=== PATIENT | female | born 1935 | race Caucasian/White ===

== ENCOUNTER 2021-06-13 07:57 | Inpatient (IN) ==
[2021-06-13 07:05] LABS: Hematocrit 40.2 % (35.3-44.9); Hemoglobin 13.7 g/dL (11.5-15.4); Immature Granulocytes % 0.4 % (0-4); Lymphocytes # 0.8 K/mcL (0.6-4.6); Lymphocytes % 28.6 %; Mean Corpuscular HGB Conc 34.1 g/dL (31.6-35.5); Mean Corpuscular Hemoglobin 30.9 pg (28.0-33.3); Mean Corpuscular Volume 90.7 fL (83.0-100.0); Mean Platelet Volume 10.4 fL (9.4-12.4); Monocytes # 0.1 K/mcL (0.0-1.3); Monocytes % 4.9 %; Neutrophils # 1.9 K/mcL (1.6-8.9); Platelet Count 155 K/mcL (140-400); Red Blood Count 4.43 M/mcL (3.82-4.97); Red Cell Distribution Width 13.1 % (11.5-14.5); Segmented Neutrophils % 66.1 %; White Blood Count 2.8 K/mcL (4.3-11.1)
[2021-06-13 07:18] LABS: Activated Partial Thrombo Time 40.6 Seconds (26.0-36.0); INR 2.5; Prothrombin Time 28.5 Seconds (9.4-12.1)
[2021-06-13 07:25] LABS: BUN/Creatinine Ratio 19 (6-26); Blood Urea Nitrogen 13 mg/dL (8-23); Calcium 8.9 mg/dL (8.6-10.3); Carbon Dioxide 25 mEq/L (23-29); Chloride 100 mEq/L (98-107); Glucose 144 mg/dL (70-105); Osmolality,Calculated 281 (280-300); Sodium 134 mEq/L (136-145); eGFR For African Americans > 60 (> 60); eGFR For Non-African Americans > 60 (> 60)
[2021-06-13 07:27] LABS: Lactate Dehydrogenase 207 Units/L (140-271)
[~2021-06-13 07:57] MED LIST: *HR* Heparin 5,000 UNIT/ML VIAL SQ SCH; Naloxone 0.4 MG/ML INJ IVP PRN; Ondansetron 4 MG/2 ML VIAL IVP PRN
[2021-06-13 08:44] LABS: C-Reactive Protein 64 mg/L (Less than 10)
[2021-06-13] MEDS: cefTRIAXone 1,000 MG in 0.9 % Sodium Chloride Mini Bag 100 ML IVPB SCH (09:38)
[2021-06-13] MEDS: lisinopriL 10 MG TABLET PO SCH (09:38)
[2021-06-13] MEDS: Metoprolol XL (24 HR) Succ 25 MG TAB.ER.24H PO SCH (09:38)
[2021-06-13 11:37] LABS: Ferritin 773 ng/mL (10-120)
[2021-06-13] MEDS ORDERED: *HR* Rivaroxaban 15 MG TABLET PO SCH (17:00)
[2021-06-13] MEDS: *HR* Rivaroxaban 10 MG TABLET PO SCH (17:04)
[2021-06-14] MEDS ORDERED: Morphine Sulfate 2 MG/ML SYRINGE IVP ONE (00:15)
[2021-06-14] MEDS: cefTRIAXone 1,000 MG in 0.9 % Sodium Chloride Mini Bag 100 ML IVPB SCH (09:22)
[2021-06-14] MEDS: Metoprolol XL (24 HR) Succ 25 MG TAB.ER.24H PO SCH (09:22)
[2021-06-14] MEDS: lisinopriL 10 MG TABLET PO SCH (09:24)
[2021-06-14] MEDS: Ipratropium 1 PUFF INHALER IH SCH ×4 (11:09→22:57)
[2021-06-14 11:58] LABS: Hematocrit 39.6 % (35.3-44.9); Hemoglobin 13.7 g/dL (11.5-15.4); Immature Granulocytes % 0.5 % (0-4); Lymphocytes # 0.6 K/mcL (0.6-4.6); Lymphocytes % 7.2 %; Mean Corpuscular HGB Conc 34.6 g/dL (31.6-35.5); Mean Corpuscular Hemoglobin 30.7 pg (28.0-33.3); Mean Corpuscular Volume 88.8 fL (83.0-100.0); Mean Platelet Volume 10.7 fL (9.4-12.4); Monocytes # 0.7 K/mcL (0.0-1.3); Monocytes % 8.5 %; Platelet Count 203 K/mcL (140-400); Red Blood Count 4.46 M/mcL (3.82-4.97); Red Cell Distribution Width 13.1 % (11.5-14.5); Segmented Neutrophils % 83.8 %
[2021-06-14 12:01] LABS: Neutrophils # 6.9 K/mcL (1.6-8.9); White Blood Count 8.2 K/mcL (4.3-11.1)
[2021-06-14 12:35] LABS: Alanine Aminotransferase 15 Units/L (7-52); Albumin 3.3 g/dL (3.5-5.7); Albumin/Globulin Ratio 1.6 (1.1-2.2); Alkaline Phosphatase 69 Units/L (34-104); Aspartate Amino Transferase 27 Units/L (13-39); BUN/Creatinine Ratio 27 (6-26); Bilirubin,Total 0.4 mg/dL (0.3-1.0); Blood Urea Nitrogen 17 mg/dL (8-23); Calcium 8.9 mg/dL (8.6-10.3); Carbon Dioxide 23 mEq/L (23-29); Chloride 99 mEq/L (98-107); Globulin 2.1 g/dL (2.4-3.5); Glucose 181 mg/dL (70-105); Osmolality,Calculated 276 (280-300); Potassium 4.2 mEq/L (3.5-5.1); Sodium 130 mEq/L (136-145); Total Protein 5.4 g/dL (6.4-8.9); eGFR For African Americans > 60 (> 60); eGFR For Non-African Americans > 60 (> 60)
[2021-06-14] MEDS: *HR* Rivaroxaban 10 MG TABLET PO SCH (17:16)
[2021-06-15] MEDS: Ipratropium 1 PUFF INHALER IH SCH ×5 (04:09→19:57)
[2021-06-15 05:57] LABS: Basophils % 0.1 %; Hemoglobin 13.3 g/dL (11.5-15.4); Immature Granulocytes % 0.7 % (0-4); Lymphocytes # 0.7 K/mcL (0.6-4.6); Lymphocytes % 7.1 %; Mean Corpuscular HGB Conc 34.1 g/dL (31.6-35.5); Mean Corpuscular Hemoglobin 30.5 pg (28.0-33.3); Mean Corpuscular Volume 89.4 fL (83.0-100.0); Mean Platelet Volume 10.6 fL (9.4-12.4); Monocytes # 0.7 K/mcL (0.0-1.3); Monocytes % 7.9 %; Neutrophils # 7.7 K/mcL (1.6-8.9); Platelet Count 220 K/mcL (140-400); Red Blood Count 4.36 M/mcL (3.82-4.97); Red Cell Distribution Width 13.2 % (11.5-14.5); Segmented Neutrophils % 84.2 %; White Blood Count 9.2 K/mcL (4.3-11.1)
[2021-06-15 06:18] LABS: Alanine Aminotransferase 21 Units/L (7-52); Albumin 3.2 g/dL (3.5-5.7); Albumin/Globulin Ratio 1.7 (1.1-2.2); Alkaline Phosphatase 68 Units/L (34-104); Aspartate Amino Transferase 33 Units/L (13-39); BUN/Creatinine Ratio 29 (6-26); Bilirubin,Total 0.4 mg/dL (0.3-1.0); Blood Urea Nitrogen 20 mg/dL (8-23); Calcium 8.7 mg/dL (8.6-10.3); Carbon Dioxide 24 mEq/L (23-29); Chloride 102 mEq/L (98-107); Globulin 1.9 g/dL (2.4-3.5); Glucose 129 mg/dL (70-105); Lactate Dehydrogenase 235 Units/L (140-271); Osmolality,Calculated 280 (280-300); Potassium 4.5 mEq/L (3.5-5.1); Sodium 133 mEq/L (136-145); Total Protein 5.1 g/dL (6.4-8.9); eGFR For African Americans > 60 (> 60); eGFR For Non-African Americans > 60 (> 60)
[2021-06-15 06:35] LABS: Ferritin 701 ng/mL (10-120)
[2021-06-15] MEDS: Multivit/Ca/Min/Fe/FA 1 TAB TABLET PO SCH (08:29)
[2021-06-15] MEDS: Metoprolol XL (24 HR) Succ 25 MG TAB.ER.24H PO SCH (08:29)
[2021-06-15] MEDS: lisinopriL 10 MG TABLET PO SCH (08:29)
[2021-06-15] MEDS: Cholecalciferol (D-3) 1,000 UNIT (25MCG) TABLET PO SCH (08:29)
[2021-06-15] MEDS: cefTRIAXone 1,000 MG in 0.9 % Sodium Chloride Mini Bag 100 ML IVPB SCH (08:30)
[2021-06-15] MEDS: *HR* Rivaroxaban 10 MG TABLET PO SCH (17:38)
[2021-06-16] MEDS: Ipratropium 1 PUFF INHALER IH SCH ×6 (00:44→20:22)
[2021-06-16 07:53] LABS: Basophils % 0.2 %; Hemoglobin 14.4 g/dL (11.5-15.4); Immature Granulocytes % 1.4 % (0-4); Lymphocytes # 0.8 K/mcL (0.6-4.6); Lymphocytes % 8.2 %; Mean Corpuscular HGB Conc 32.7 g/dL (31.6-35.5); Mean Corpuscular Hemoglobin 29.8 pg (28.0-33.3); Mean Corpuscular Volume 90.9 fL (83.0-100.0); Mean Platelet Volume 10.6 fL (9.4-12.4); Monocytes # 1.1 K/mcL (0.0-1.3); Monocytes % 11.1 %; Neutrophils # 7.8 K/mcL (1.6-8.9); Platelet Count 230 K/mcL (140-400); Red Blood Count 4.84 M/mcL (3.82-4.97); Red Cell Distribution Width 13.2 % (11.5-14.5); Segmented Neutrophils % 79.1 %; White Blood Count 9.8 K/mcL (4.3-11.1)
[2021-06-16 08:14] LABS: Alanine Aminotransferase 44 Units/L (7-52); Albumin 3.3 g/dL (3.5-5.7); Albumin/Globulin Ratio 1.5 (1.1-2.2); Alkaline Phosphatase 79 Units/L (34-104); Aspartate Amino Transferase 55 Units/L (13-39); BUN/Creatinine Ratio 32 (6-26); Bilirubin,Total 0.5 mg/dL (0.3-1.0); Blood Urea Nitrogen 22 mg/dL (8-23); Carbon Dioxide 29 mEq/L (23-29); Chloride 99 mEq/L (98-107); Globulin 2.2 g/dL (2.4-3.5); Glucose 106 mg/dL (70-105); Osmolality,Calculated 282 (280-300); Potassium 4.8 mEq/L (3.5-5.1); Sodium 134 mEq/L (136-145); Total Protein 5.5 g/dL (6.4-8.9); eGFR For African Americans > 60 (> 60); eGFR For Non-African Americans > 60 (> 60)
[2021-06-16] MEDS: cefTRIAXone 1,000 MG in 0.9 % Sodium Chloride Mini Bag 100 ML IVPB SCH (09:16)
[2021-06-16] MEDS: Metoprolol XL (24 HR) Succ 25 MG TAB.ER.24H PO SCH (09:17)
[2021-06-16] MEDS: lisinopriL 10 MG TABLET PO SCH (09:17)
[2021-06-16] MEDS: Cholecalciferol (D-3) 1,000 UNIT (25MCG) TABLET PO SCH (09:17)
[2021-06-16] MEDS: Multivit/Ca/Min/Fe/FA 1 TAB TABLET PO SCH (09:17)
[2021-06-16] MEDS: Acetaminophen 325 MG TABLET PO PRN (09:58)
[2021-06-16] MEDS ORDERED: Remdesivir 200 MG in 0.9 % Sodium Chloride 100 ML IVPB ONE (10:17)
[2021-06-16] MEDS: *HR* Rivaroxaban 10 MG TABLET PO SCH (16:56)
[2021-06-17] MEDS: Ipratropium 1 PUFF INHALER IH SCH ×6 (00:31→20:31)
[2021-06-17 05:49] LABS: Basophils % 0.3 %; Hematocrit 40.4 % (35.3-44.9); Hemoglobin 13.6 g/dL (11.5-15.4); Lymphocytes # 0.7 K/mcL (0.6-4.6); Lymphocytes % 8.3 %; Mean Corpuscular HGB Conc 33.7 g/dL (31.6-35.5); Mean Corpuscular Hemoglobin 30.1 pg (28.0-33.3); Mean Corpuscular Volume 89.4 fL (83.0-100.0); Mean Platelet Volume 10.5 fL (9.4-12.4); Monocytes # 0.9 K/mcL (0.0-1.3); Monocytes % 10.2 %; Platelet Count 210 K/mcL (140-400); Red Blood Count 4.52 M/mcL (3.82-4.97); Red Cell Distribution Width 13.2 % (11.5-14.5); Segmented Neutrophils % 79.2 %; White Blood Count 8.9 K/mcL (4.3-11.1)
[2021-06-17 06:16] LABS: Alanine Aminotransferase 40 Units/L (7-52); Albumin 3.1 g/dL (3.5-5.7); Albumin/Globulin Ratio 1.6 (1.1-2.2); Alkaline Phosphatase 71 Units/L (34-104); Aspartate Amino Transferase 41 Units/L (13-39); BUN/Creatinine Ratio 39 (6-26); Bilirubin,Total 0.5 mg/dL (0.3-1.0); Blood Urea Nitrogen 22 mg/dL (8-23); Calcium 8.5 mg/dL (8.6-10.3); Carbon Dioxide 27 mEq/L (23-29); Chloride 98 mEq/L (98-107); Globulin 1.9 g/dL (2.4-3.5); Glucose 123 mg/dL (70-105); Lactate Dehydrogenase 282 Units/L (140-271); Osmolality,Calculated 279 (280-300); Potassium 4.6 mEq/L (3.5-5.1); Sodium 132 mEq/L (136-145); eGFR For African Americans > 60 (> 60); eGFR For Non-African Americans > 60 (> 60)
[2021-06-17 06:21] LABS: Ferritin 930 ng/mL (10-120)
[2021-06-17 08:31] LABS: C-Reactive Protein 84 mg/L (Less than 10)
[2021-06-17] MEDS: cefTRIAXone 1,000 MG in 0.9 % Sodium Chloride Mini Bag 100 ML IVPB SCH (09:40)
[2021-06-17] MEDS: Cholecalciferol (D-3) 1,000 UNIT (25MCG) TABLET PO SCH (09:41)
[2021-06-17] MEDS: Multivit/Ca/Min/Fe/FA 1 TAB TABLET PO SCH (09:41)
[2021-06-17] MEDS: Metoprolol XL (24 HR) Succ 25 MG TAB.ER.24H PO SCH (09:42)
[2021-06-17] MEDS: lisinopriL 10 MG TABLET PO SCH (09:43)
[2021-06-17] MEDS: Remdesivir 100 MG in 0.9 % Sodium Chloride 100 ML IVPB SCH (11:30)
[2021-06-17] MEDS: *HR* Rivaroxaban 10 MG TABLET PO SCH (19:01)
[2021-06-18] MEDS: Ipratropium 1 PUFF INHALER IH SCH ×7 (00:25→23:15)
[2021-06-18 06:18] LABS: Basophils % 0.5 %; Eosinophils % 0.1 %; Hematocrit 41.8 % (35.3-44.9); Hemoglobin 14.3 g/dL (11.5-15.4); Immature Granulocytes % 2.6 % (0-4); Lymphocytes # 0.9 K/mcL (0.6-4.6); Lymphocytes % 9.9 %; Mean Corpuscular HGB Conc 34.2 g/dL (31.6-35.5); Mean Corpuscular Hemoglobin 30.8 pg (28.0-33.3); Mean Corpuscular Volume 90.1 fL (83.0-100.0); Mean Platelet Volume 10.4 fL (9.4-12.4); Monocytes % 10.7 %; Neutrophils # 6.8 K/mcL (1.6-8.9); Platelet Count 247 K/mcL (140-400); Red Blood Count 4.64 M/mcL (3.82-4.97); Red Cell Distribution Width 13.2 % (11.5-14.5); Segmented Neutrophils % 76.2 %; White Blood Count 8.9 K/mcL (4.3-11.1)
[2021-06-18] MEDS: lisinopriL 10 MG TABLET PO SCH (09:07)
[2021-06-18] MEDS: Cholecalciferol (D-3) 1,000 UNIT (25MCG) TABLET PO SCH (09:07)
[2021-06-18] MEDS: Multivit/Ca/Min/Fe/FA 1 TAB TABLET PO SCH (09:07)
[2021-06-18] MEDS: Metoprolol XL (24 HR) Succ 25 MG TAB.ER.24H PO SCH (09:08)
[2021-06-18 11:38] LABS: Alanine Aminotransferase 46 Units/L (7-52); Albumin/Globulin Ratio 1.5 (1.1-2.2); Alkaline Phosphatase 71 Units/L (34-104); Aspartate Amino Transferase 42 Units/L (13-39); BUN/Creatinine Ratio 33 (6-26); Bilirubin,Total 0.4 mg/dL (0.3-1.0); Blood Urea Nitrogen 20 mg/dL (8-23); C-Reactive Protein 63 mg/L (Less than 10); Calcium 8.7 mg/dL (8.6-10.3); Carbon Dioxide 29 mEq/L (23-29); Chloride 98 mEq/L (98-107); Ferritin 1186 ng/mL (10-120); Glucose 124 mg/dL (70-105); Lactate Dehydrogenase 464 Units/L (140-271); Osmolality,Calculated 278 (280-300); Potassium 4.8 mEq/L (3.5-5.1); Sodium 132 mEq/L (136-145); eGFR For African Americans > 60 (> 60); eGFR For Non-African Americans > 60 (> 60)
[2021-06-18] MEDS: Remdesivir 100 MG in 0.9 % Sodium Chloride 100 ML IVPB SCH (11:51)
[2021-06-18] MEDS: *HR* Rivaroxaban 10 MG TABLET PO SCH (16:39)
[2021-06-19] MEDS: Ipratropium 1 PUFF INHALER IH SCH ×6 (03:56→23:24)
[2021-06-19 06:55] LABS: Hematocrit 40.9 % (35.3-44.9); Mean Corpuscular HGB Conc 34.2 g/dL (31.6-35.5); Mean Corpuscular Hemoglobin 30.4 pg (28.0-33.3); Mean Corpuscular Volume 88.7 fL (83.0-100.0); Mean Platelet Volume 10.4 fL (9.4-12.4); Platelet Count 267 K/mcL (140-400); Red Blood Count 4.61 M/mcL (3.82-4.97); Red Cell Distribution Width 13.1 % (11.5-14.5); White Blood Count 8.8 K/mcL (4.3-11.1)
[2021-06-19 07:03] LABS: BUN/Creatinine Ratio 36 (6-26); Blood Urea Nitrogen 20 mg/dL (8-23); Calcium 8.8 mg/dL (8.6-10.3); Carbon Dioxide 32 mEq/L (23-29); Chloride 97 mEq/L (98-107); Glucose 122 mg/dL (70-105); Magnesium 1.9 mg/dL (1.6-2.6); Osmolality,Calculated 280 (280-300); Phosphorous 2.9 mg/dL (2.7-4.5); Potassium 4.9 mEq/L (3.5-5.1); Sodium 133 mEq/L (136-145); eGFR For African Americans > 60 (> 60); eGFR For Non-African Americans > 60 (> 60)
[2021-06-19 07:18] LABS: Ferritin 1016 ng/mL (10-120)
[2021-06-19] MEDS: Cholecalciferol (D-3) 1,000 UNIT (25MCG) TABLET PO SCH (10:12)
[2021-06-19] MEDS: lisinopriL 10 MG TABLET PO SCH (10:12)
[2021-06-19] MEDS: Metoprolol XL (24 HR) Succ 25 MG TAB.ER.24H PO SCH (10:12)
[2021-06-19] MEDS: Multivit/Ca/Min/Fe/FA 1 TAB TABLET PO SCH (10:12)
[2021-06-19] MEDS: Remdesivir 100 MG in 0.9 % Sodium Chloride 100 ML IVPB SCH (12:58)
[2021-06-19] MEDS: Melatonin 3 MG TABLET PO PRN (15:00)
[2021-06-19 16:53] LABS: Albumin 2.7 g/dL (3.5-5.7); Albumin/Globulin Ratio 1.4 (1.1-2.2); Bilirubin,Direct 0.1 mg/dL (0.0-0.2); Bilirubin,Indirect 0.4 mg/dL (0.0-1.0); Bilirubin,Total 0.5 mg/dL (0.3-1.0); Globulin 1.9 g/dL (2.4-3.5); Total Protein 4.6 g/dL (6.4-8.9)
[2021-06-19] MEDS: *HR* Rivaroxaban 10 MG TABLET PO SCH (18:32)
[2021-06-20] MEDS: Ipratropium 1 PUFF INHALER IH SCH ×6 (03:47→23:50)
[2021-06-20 06:06] LABS: Hematocrit 41.7 % (35.3-44.9); Mean Corpuscular HGB Conc 33.6 g/dL (31.6-35.5); Mean Corpuscular Hemoglobin 30.2 pg (28.0-33.3); Mean Corpuscular Volume 89.9 fL (83.0-100.0); Mean Platelet Volume 10.2 fL (9.4-12.4); Platelet Count 281 K/mcL (140-400); Red Blood Count 4.64 M/mcL (3.82-4.97); White Blood Count 8.8 K/mcL (4.3-11.1)
[2021-06-20 06:34] LABS: Alanine Aminotransferase 27 Units/L (7-52); Albumin 2.8 g/dL (3.5-5.7); Albumin/Globulin Ratio 1.5 (1.1-2.2); Alkaline Phosphatase 74 Units/L (34-104); Aspartate Amino Transferase 22 Units/L (13-39); BUN/Creatinine Ratio 44 (6-26); Bilirubin,Direct 0.1 mg/dL (0.0-0.2); Bilirubin,Indirect 0.4 mg/dL (0.0-1.0); Bilirubin,Total 0.5 mg/dL (0.3-1.0); Blood Urea Nitrogen 24 mg/dL (8-23); Calcium 8.8 mg/dL (8.6-10.3); Carbon Dioxide 32 mEq/L (23-29); Chloride 96 mEq/L (98-107); Globulin 1.9 g/dL (2.4-3.5); Glucose 182 mg/dL (70-105); Osmolality,Calculated 283 (280-300); Potassium 4.9 mEq/L (3.5-5.1); Sodium 132 mEq/L (136-145); Total Protein 4.7 g/dL (6.4-8.9); eGFR For African Americans > 60 (> 60); eGFR For Non-African Americans > 60 (> 60)
[2021-06-20] MEDS: Multivit/Ca/Min/Fe/FA 1 TAB TABLET PO SCH (09:54)
[2021-06-20] MEDS: Metoprolol XL (24 HR) Succ 25 MG TAB.ER.24H PO SCH (09:54)
[2021-06-20] MEDS: lisinopriL 10 MG TABLET PO SCH (09:54)
[2021-06-20] MEDS: Cholecalciferol (D-3) 1,000 UNIT (25MCG) TABLET PO SCH (09:54)
[2021-06-20] MEDS: Remdesivir 100 MG in 0.9 % Sodium Chloride 100 ML IVPB SCH (11:14)
[2021-06-20] MEDS: *HR* Rivaroxaban 10 MG TABLET PO SCH (16:40)
[2021-06-20] MEDS: traZODone 50 MG TABLET PO PRN (20:23)
[2021-06-20] MEDS: Melatonin 3 MG TABLET PO PRN (20:24)
[2021-06-21] MEDS: Ipratropium 1 PUFF INHALER IH SCH ×6 (03:57→23:44)
[2021-06-21] MEDS: lisinopriL 10 MG TABLET PO SCH (09:16)
[2021-06-21] MEDS: Multivit/Ca/Min/Fe/FA 1 TAB TABLET PO SCH (09:25)
[2021-06-21] MEDS: Metoprolol XL (24 HR) Succ 25 MG TAB.ER.24H PO SCH (09:25)
[2021-06-21] MEDS: Cholecalciferol (D-3) 1,000 UNIT (25MCG) TABLET PO SCH (09:25)
[2021-06-21] MEDS: *HR* Rivaroxaban 10 MG TABLET PO SCH (16:43)
[2021-06-21] MEDS: traZODone 50 MG TABLET PO PRN (21:32)
[2021-06-21] MEDS: Melatonin 3 MG TABLET PO PRN (21:32)
[2021-06-22] MEDS: Ipratropium 1 PUFF INHALER IH SCH ×5 (04:48→20:14)
[2021-06-22 06:55] LABS: Hematocrit 41.8 % (35.3-44.9); Hemoglobin 14.1 g/dL (11.5-15.4); Mean Corpuscular HGB Conc 33.7 g/dL (31.6-35.5); Mean Corpuscular Hemoglobin 29.7 pg (28.0-33.3); Mean Platelet Volume 10.2 fL (9.4-12.4); Platelet Count 286 K/mcL (140-400); Red Blood Count 4.75 M/mcL (3.82-4.97); White Blood Count 11.1 K/mcL (4.3-11.1)
[2021-06-22 07:17] LABS: BUN/Creatinine Ratio 63 (6-26); Blood Urea Nitrogen 33 mg/dL (8-23); Carbon Dioxide 32 mEq/L (23-29); Chloride 97 mEq/L (98-107); Glucose 145 mg/dL (70-105); Osmolality,Calculated 284 (280-300); Potassium 4.8 mEq/L (3.5-5.1); Sodium 132 mEq/L (136-145); eGFR For African Americans > 60 (> 60); eGFR For Non-African Americans > 60 (> 60)
[2021-06-22 08:48] LABS: Calcium 8.6 mg/dL (8.6-10.3)
[2021-06-22] MEDS: lisinopriL 10 MG TABLET PO SCH (09:00)
[2021-06-22] MEDS: Metoprolol XL (24 HR) Succ 25 MG TAB.ER.24H PO SCH (09:19)
[2021-06-22] MEDS: Cholecalciferol (D-3) 1,000 UNIT (25MCG) TABLET PO SCH (09:54)
[2021-06-22] MEDS: Multivit/Ca/Min/Fe/FA 1 TAB TABLET PO SCH (09:54)
[2021-06-22] MEDS: *HR* Rivaroxaban 10 MG TABLET PO SCH (18:20)
[2021-06-23] MEDS: Ipratropium 1 PUFF INHALER IH SCH ×7 (00:29→20:42)
[2021-06-23] MEDS: Multivit/Ca/Min/Fe/FA 1 TAB TABLET PO SCH (09:43)
[2021-06-23] MEDS: Cholecalciferol (D-3) 1,000 UNIT (25MCG) TABLET PO SCH (09:43)
[2021-06-23] MEDS: Metoprolol XL (24 HR) Succ 25 MG TAB.ER.24H PO SCH (09:43)
[2021-06-23] MEDS: lisinopriL 10 MG TABLET PO SCH (09:43)
[2021-06-23] MEDS: dexAMETHasone 4 MG TABLET PO SCH (09:43)
[2021-06-23] MEDS: *HR* Rivaroxaban 10 MG TABLET PO SCH (17:35)
[2021-06-24] MEDS: Ipratropium 1 PUFF INHALER IH SCH ×6 (00:09→20:10)
[2021-06-24 07:01] LABS: Hematocrit 40.5 % (35.3-44.9); Mean Corpuscular HGB Conc 34.6 g/dL (31.6-35.5); Mean Corpuscular Hemoglobin 30.7 pg (28.0-33.3); Mean Corpuscular Volume 88.8 fL (83.0-100.0); Mean Platelet Volume 10.6 fL (9.4-12.4); Platelet Count 248 K/mcL (140-400); Red Blood Count 4.56 M/mcL (3.82-4.97); Red Cell Distribution Width 13.4 % (11.5-14.5); White Blood Count 9.7 K/mcL (4.3-11.1)
[2021-06-24 07:42] LABS: BUN/Creatinine Ratio 56 (6-26); Blood Urea Nitrogen 32 mg/dL (8-23); Calcium 8.3 mg/dL (8.6-10.3); Carbon Dioxide 31 mEq/L (23-29); Chloride 98 mEq/L (98-107); Glucose 116 mg/dL (70-105); Osmolality,Calculated 282 (280-300); Potassium 4.7 mEq/L (3.5-5.1); Sodium 132 mEq/L (136-145); eGFR For African Americans > 60 (> 60); eGFR For Non-African Americans > 60 (> 60)
[2021-06-24] MEDS: Multivit/Ca/Min/Fe/FA 1 TAB TABLET PO SCH (08:33)
[2021-06-24] MEDS: Cholecalciferol (D-3) 1,000 UNIT (25MCG) TABLET PO SCH (08:33)
[2021-06-24] MEDS: dexAMETHasone 4 MG TABLET PO SCH (08:50)
[2021-06-24] MEDS: lisinopriL 10 MG TABLET PO SCH (08:51)
[2021-06-24] MEDS: Metoprolol XL (24 HR) Succ 25 MG TAB.ER.24H PO SCH (08:51)
[2021-06-24] MEDS: *HR* Rivaroxaban 10 MG TABLET PO SCH (23:27)
[2021-06-25] MEDS: Ipratropium 1 PUFF INHALER IH SCH ×7 (00:46→23:33)
[2021-06-25] MEDS: Cholecalciferol (D-3) 1,000 UNIT (25MCG) TABLET PO SCH (09:34)
[2021-06-25] MEDS: lisinopriL 10 MG TABLET PO SCH (09:34)
[2021-06-25] MEDS: Multivit/Ca/Min/Fe/FA 1 TAB TABLET PO SCH (09:34)
[2021-06-25] MEDS: Metoprolol XL (24 HR) Succ 25 MG TAB.ER.24H PO SCH (09:34)
[2021-06-25] MEDS: *HR* Rivaroxaban 10 MG TABLET PO SCH (17:35)
[2021-06-26] MEDS: Multivit/Ca/Min/Fe/FA 1 TAB TABLET PO SCH (09:39)
[2021-06-26] MEDS: Metoprolol XL (24 HR) Succ 25 MG TAB.ER.24H PO SCH (09:39)
[2021-06-26] MEDS: lisinopriL 10 MG TABLET PO SCH (09:39)
[2021-06-26] MEDS: Cholecalciferol (D-3) 1,000 UNIT (25MCG) TABLET PO SCH (09:40)
[2021-06-26] MEDS: Saline Nasal Spray 44 ML BOTTLE NS SCH ×2 (12:59→21:53)
[2021-06-26] MEDS: *HR* Rivaroxaban 10 MG TABLET PO SCH (18:23)
[2021-06-27] MEDS: Cholecalciferol (D-3) 1,000 UNIT (25MCG) TABLET PO SCH (08:58)
[2021-06-27] MEDS: lisinopriL 10 MG TABLET PO SCH (08:58)
[2021-06-27] MEDS: Metoprolol XL (24 HR) Succ 25 MG TAB.ER.24H PO SCH (08:58)
[2021-06-27] MEDS: Multivit/Ca/Min/Fe/FA 1 TAB TABLET PO SCH (08:58)
[2021-06-27] MEDS: Saline Nasal Spray 44 ML BOTTLE NS SCH ×2 (08:59→21:00)
[2021-06-27] MEDS: Acetaminophen 325 MG TABLET PO PRN ×2 (12:25→20:26)
[2021-06-27] MEDS: *HR* Rivaroxaban 10 MG TABLET PO SCH (17:47)
[2021-06-27] MEDS: Melatonin 3 MG TABLET PO PRN (20:26)
[2021-06-27] MEDS: traZODone 50 MG TABLET PO PRN (20:27)
[2021-06-28] MEDS: Cholecalciferol (D-3) 1,000 UNIT (25MCG) TABLET PO SCH (09:22)
[2021-06-28] MEDS: Multivit/Ca/Min/Fe/FA 1 TAB TABLET PO SCH (09:22)
[2021-06-28] MEDS: Saline Nasal Spray 44 ML BOTTLE NS SCH ×2 (09:24→21:42)
[2021-06-28] MEDS: Metoprolol XL (24 HR) Succ 25 MG TAB.ER.24H PO SCH (09:37)
[2021-06-28] MEDS: lisinopriL 10 MG TABLET PO SCH (09:37)
[2021-06-28] MEDS: *HR* Rivaroxaban 10 MG TABLET PO SCH (16:30)
[2021-06-29] MEDS: Saline Nasal Spray 44 ML BOTTLE NS SCH ×2 (13:47→22:14)
[2021-06-29] MEDS: lisinopriL 10 MG TABLET PO SCH (13:48)
[2021-06-29] MEDS: Metoprolol XL (24 HR) Succ 25 MG TAB.ER.24H PO SCH (13:48)
[2021-06-29] MEDS: Multivit/Ca/Min/Fe/FA 1 TAB TABLET PO SCH (13:48)
[2021-06-29] MEDS: Cholecalciferol (D-3) 1,000 UNIT (25MCG) TABLET PO SCH (13:48)
[2021-06-29] MEDS: *HR* Rivaroxaban 10 MG TABLET PO SCH (16:23)
[2021-06-29] MEDS ORDERED: *HR* Rivaroxaban 15 MG TABLET PO SCH (17:00)
[2021-06-29] MEDS: Melatonin 3 MG TABLET PO PRN (21:52)
[2021-06-30] MEDS: Saline Nasal Spray 44 ML BOTTLE NS SCH ×2 (10:42→19:57)
[2021-06-30] MEDS: Metoprolol XL (24 HR) Succ 25 MG TAB.ER.24H PO SCH (10:42)
[2021-06-30] MEDS: Multivit/Ca/Min/Fe/FA 1 TAB TABLET PO SCH (10:42)
[2021-06-30] MEDS: lisinopriL 10 MG TABLET PO SCH (10:42)
[2021-06-30] MEDS: Cholecalciferol (D-3) 1,000 UNIT (25MCG) TABLET PO SCH (10:42)
[2021-06-30 11:09] LABS: BUN/Creatinine Ratio 31 (6-26); Blood Urea Nitrogen 21 mg/dL (8-23); Calcium 8.7 mg/dL (8.6-10.3); Carbon Dioxide 32 mEq/L (23-29); Chloride 98 mEq/L (98-107); Glucose 115 mg/dL (70-105); Magnesium 1.8 mg/dL (1.6-2.6); Osmolality,Calculated 280 (280-300); Potassium 4.2 mEq/L (3.5-5.1); Sodium 133 mEq/L (136-145); eGFR For African Americans > 60 (> 60); eGFR For Non-African Americans > 60 (> 60)
[2021-06-30 13:30] LABS: Hematocrit 39.2 % (35.3-44.9); Hemoglobin 13.1 g/dL (11.5-15.4); Mean Corpuscular HGB Conc 33.4 g/dL (31.6-35.5); Mean Corpuscular Hemoglobin 30.5 pg (28.0-33.3); Mean Corpuscular Volume 91.2 fL (83.0-100.0); Mean Platelet Volume 10.7 fL (9.4-12.4); Platelet Count 147 K/mcL (140-400); Red Cell Distribution Width 13.8 % (11.5-14.5)
[2021-06-30 13:31] LABS: White Blood Count 4.6 K/mcL (4.3-11.1)
[2021-06-30] MEDS: *HR* Rivaroxaban 10 MG TABLET PO SCH (17:14)
[2021-07-01] MEDS: Cholecalciferol (D-3) 1,000 UNIT (25MCG) TABLET PO SCH (11:48)
[2021-07-01] MEDS: Multivit/Ca/Min/Fe/FA 1 TAB TABLET PO SCH (11:48)
[2021-07-01] MEDS: Metoprolol XL (24 HR) Succ 25 MG TAB.ER.24H PO SCH (11:48)
[2021-07-01] MEDS: Saline Nasal Spray 44 ML BOTTLE NS SCH ×2 (11:49→21:50)
[2021-07-01] MEDS: lisinopriL 10 MG TABLET PO SCH (11:49)
[2021-07-01] MEDS: *HR* Rivaroxaban 10 MG TABLET PO SCH (18:21)
[2021-07-02 05:14] VITALS: BP 101/59; PULSE 82; TEMP 97.7; O2SAT 90
[2021-07-02] MEDS: lisinopriL 10 MG TABLET PO SCH (07:49)
[2021-07-02] MEDS: Metoprolol XL (24 HR) Succ 25 MG TAB.ER.24H PO SCH (07:49)
[2021-07-02] MEDS: Cholecalciferol (D-3) 1,000 UNIT (25MCG) TABLET PO SCH (07:51)
[2021-07-02] MEDS: Saline Nasal Spray 44 ML BOTTLE NS SCH (07:51)
[2021-07-02] MEDS: Multivit/Ca/Min/Fe/FA 1 TAB TABLET PO SCH (07:51)
[2021-07-02] MEDS: *HR* Rivaroxaban 10 MG TABLET PO SCH (16:31)
== END 2021-07-02 18:32 | DRG 177 ==
LOC: 3NENU → SUATTDRO 07:57 → 2NENU 06-17 20:18
PROVIDERS: ADMIT Internal Medicine; ATTEND Internal Medicine